=== PATIENT | female | born 1955 | race Two or more races ===

== ENCOUNTER 2017-06-05 19:56 | Emergency (ER) | payer OTHER ==
[~2017-06-05] VITALS: Ht 165.1 cm; Wt 77.1 kg
[~2017-06-05 19:56] MED LIST: ADULT ASPIRIN81 MG; HYDROCHLOROTHIA25 MG; TOPROL XL50 M1; WELLBUTRIN XL300 MG
== END 2017-06-05 23:54 | disposition home or self-care (01) ==
LOC: ER 19:56
DX: N39.0 Urinary tract infection, site not specified (principal); R31.9 Hematuria, unspecified; R82.79 Other abnormal findings on microbiological examination of urine

== ENCOUNTER 2017-12-28 11:01 | Outpatient (CLI) | payer OTHER | END 2017-12-28 11:12 | disposition home or self-care (01) | LOC: MAMO-SONO 11:01 | DX: Z12.31 Encounter for screening mammogram for malignant neoplasm of breast (principal); N60.11 Diffuse cystic mastopathy of right breast ==

== ENCOUNTER 2018-01-11 13:54 | Outpatient (CLI) | payer OTHER | END 2018-01-11 14:01 | disposition home or self-care (01) | LOC: NUCLEAR 13:54 | DX: M81.0 Age-related osteoporosis without current pathological fracture (principal) ==

== ENCOUNTER 2018-03-17 10:11 | Outpatient (CLI) | payer OTHER | END 2018-03-17 10:40 | disposition home or self-care (01) | LOC: MRI 10:11 | DX: M54.6 Pain in thoracic spine (principal); M54.89 Other dorsalgia | CPT/HCPCS: 72146 ==

== ENCOUNTER 2019-02-15 08:22 | Outpatient (CLI) | payer OTHER | END 2019-02-15 08:30 | disposition home or self-care (01) | LOC: MAMO-SONO 08:22 | DX: Z12.31 Encounter for screening mammogram for malignant neoplasm of breast (principal); Z87.898 Personal history of other specified conditions; N60.11 Diffuse cystic mastopathy of right breast ==

== ENCOUNTER 2019-05-09 08:26 | Outpatient (CLI) | payer OTHER | END 2019-05-09 08:32 | disposition home or self-care (01) | LOC: SONOGRAMA 08:26 | DX: R10.11 Right upper quadrant pain (principal); K76.0 Fatty (change of) liver, not elsewhere classified ==

== ENCOUNTER 2020-01-04 09:56 | Emergency (ER) | payer OTHER ==
[~2020-01-04] VITALS: Ht 165.1 cm; Wt 71.7 kg
[2020-01-04] MEDS ORDERED: TUSNEL LIQUID178 ML PO (12:53)
== END 2020-01-04 13:09 | disposition home or self-care (01) ==
LOC: ER 09:56
DX: J06.9 Acute upper respiratory infection, unspecified (principal); B96.0 Mycoplasma pneumoniae [M. pneumoniae] as the cause of diseases classified elsewhere; Z03.818 Encounter for observation for suspected exposure to other biological agents ruled out; R53.1 Weakness

== ENCOUNTER 2020-01-09 08:34 | Inpatient (IN) | payer OTHER ==
[~2020-01-09] VITALS: Ht 165.1 cm; Wt 71.7 kg
[~2020-01-09 08:34] MED LIST changes: +TUSNEL LIQUID178 ML PO
== END 2020-01-18 16:47 | disposition home or self-care (01) | DRG 177 ==
LOC: ER 08:34 → MEDJ 17:57
PROVIDERS: ADMIT Internal Medicine; ATTEND Internal Medicine
PROC: 3E0F7SF Introduction of Other Gas into Respiratory Tract, Via Natural or Artificial Opening (ICD-10-PCS; principal; 2020-01-09)
PROC: 4A033R1 Measurement of Arterial Saturation, Peripheral, Percutaneous Approach (ICD-10-PCS; 2020-01-09)
PROC: 8E0ZXY6 Isolation (ICD-10-PCS; 2020-01-09)
PROC: 4A12X4Z Monitoring of Cardiac Electrical Activity, External Approach (ICD-10-PCS; 2020-01-09)
PROC: CB2YYZZ Tomographic (Tomo) Nuclear Medicine Imaging of Respiratory System using Other Radionuclide (ICD-10-PCS; 2020-01-09)
PROC: 02HV33Z Insertion of Infusion Device into Superior Vena Cava, Percutaneous Approach (ICD-10-PCS; 2020-01-10)
DX: U07.1 COVID-19 (principal); J12.89 Other viral pneumonia; N39.0 Urinary tract infection, site not specified; R09.02 Hypoxemia; I10 Essential (primary) hypertension; F32.9 Major depressive disorder, single episode, unspecified; R00.1 Bradycardia, unspecified

== ENCOUNTER 2020-03-05 09:27 | Outpatient (CLI) | payer OTHER | END 2020-03-05 09:38 | disposition home or self-care (01) | LOC: MAMO-SONO 09:27 | PROVIDERS: ATTEND Surgery | DX: N60.02 Solitary cyst of left breast (principal); N60.11 Diffuse cystic mastopathy of right breast; N60.12 Diffuse cystic mastopathy of left breast ==

== ENCOUNTER 2020-05-15 09:09 | Outpatient (CLI) | payer OTHER | END 2020-05-15 09:18 | disposition home or self-care (01) | LOC: RAD 09:09 → TOM 05-21 09:15 | PROVIDERS: ATTEND Physical Medicine & Rehabilitation | DX: M62.838 Other muscle spasm (principal); M54.2 Cervicalgia ==

== ENCOUNTER 2020-05-21 09:03 | Outpatient (CLI) | payer OTHER | END 2020-05-21 09:29 | disposition home or self-care (01) | LOC: RAD 09:03 | PROVIDERS: ATTEND Surgery | DX: K57.90 Diverticulosis of intestine, part unspecified, without perforation or abscess without bleeding (principal); R10.84 Generalized abdominal pain | CPT/HCPCS: 74177; Q9965 ==

== ENCOUNTER 2020-09-03 12:29 | Outpatient (CLI) | payer OTHER | END 2020-09-03 12:34 | disposition home or self-care (01) | LOC: NUCLEAR 12:29 | PROVIDERS: ATTEND General Practice | DX: M81.0 Age-related osteoporosis without current pathological fracture (principal); M85.80 Other specified disorders of bone density and structure, unspecified site ==

== ENCOUNTER 2020-09-10 08:42 | Outpatient (CLI) | payer OTHER | END 2020-09-10 08:47 | disposition home or self-care (01) | LOC: RX STUDY 08:42 | PROVIDERS: ATTEND Internal Medicine Gastroenterology | DX: R93.3 Abnormal findings on diagnostic imaging of other parts of digestive tract (principal) ==

== ENCOUNTER 2020-11-05 09:27 | Outpatient (CLI) | payer OTHER | END 2020-11-05 09:34 | disposition home or self-care (01) | LOC: MRI 09:27 | PROVIDERS: ATTEND Physical Medicine & Rehabilitation | DX: M50.323 Other cervical disc degeneration at C6-C7 level (principal); M54.12 Radiculopathy, cervical region | CPT/HCPCS: 72141 ==

== ENCOUNTER 2021-04-08 07:56 | Outpatient (CLI) | payer OTHER | END 2021-04-08 07:58 | disposition home or self-care (01) | LOC: MAMO-SONO 07:56 | PROVIDERS: ATTEND Obstetrics & Gynecology | DX: N60.11 Diffuse cystic mastopathy of right breast (principal); N64.59 Other signs and symptoms in breast; Z12.31 Encounter for screening mammogram for malignant neoplasm of breast ==

== ENCOUNTER 2021-07-02 07:08 | Emergency (ER) | payer OTHER ==
[~2021-07-02] VITALS: Ht 165.1 cm; Wt 63.5 kg
[2021-07-02] MEDS ORDERED: COZAAR25 MG (07:30)
== END 2021-07-02 14:19 | disposition home or self-care (01) ==
LOC: ER 07:08
DX: K29.70 Gastritis, unspecified, without bleeding (principal); I10 Essential (primary) hypertension; E11.9 Type 2 diabetes mellitus without complications; Z20.822 Contact with and (suspected) exposure to COVID-19

== ENCOUNTER 2021-07-04 08:00 | Outpatient (CLI) | payer OTHER ==
[~2021-07-04 08:00] MED LIST changes: +COZAAR25 MG
== END 2021-07-04 08:30 | disposition home or self-care (01) ==
LOC: PPH VACUNA 08:00
PROVIDERS: ATTEND Emergency Medicine Pediatric Emergency Medicine
DX: Z23 Encounter for immunization (principal)

== ENCOUNTER 2021-12-10 08:29 | Outpatient (CLI) | payer OTHER | END 2021-12-10 08:33 | disposition home or self-care (01) | LOC: RAD 08:29 | PROVIDERS: ATTEND General Practice | DX: M25.511 Pain in right shoulder (principal) ==

== ENCOUNTER 2021-12-18 08:13 | Outpatient (CLI) | payer OTHER | END 2021-12-18 08:23 | disposition home or self-care (01) | LOC: PPH VACUNA 08:13 | PROVIDERS: ATTEND Emergency Medicine Pediatric Emergency Medicine | DX: Z23 Encounter for immunization (principal) ==

== ENCOUNTER 2022-06-30 07:54 | Outpatient (CLI) | payer OTHER | END 2022-06-30 08:15 | disposition home or self-care (01) | LOC: RAD 07:54 | PROVIDERS: ATTEND Anesthesiology | DX: M54.6 Pain in thoracic spine (principal); Z12.31 Encounter for screening mammogram for malignant neoplasm of breast; N60.11 Diffuse cystic mastopathy of right breast | CPT/HCPCS: 72146 ==

== ENCOUNTER 2022-07-14 09:50 | Outpatient (CLI) | payer OTHER | END 2022-07-14 09:57 | disposition home or self-care (01) | LOC: MRI 09:50 | PROVIDERS: ATTEND Anesthesiology | DX: M54.12 Radiculopathy, cervical region (principal) | CPT/HCPCS: 72141 ==

== ENCOUNTER 2023-12-14 11:34 | Outpatient (CLI) | payer OTHER | END 2023-12-14 11:38 | disposition home or self-care (01) | LOC: TOM 11:34 | DX: G31.84 Mild cognitive impairment of uncertain or unknown etiology (principal); R56.9 Unspecified convulsions; F39 Unspecified mood [affective] disorder; I11.9 Hypertensive heart disease without heart failure; J44.9 Chronic obstructive pulmonary disease, unspecified ==

== ENCOUNTER 2024-01-18 08:59 | Outpatient (CLI) | payer OTHER | END 2024-01-18 09:08 | disposition home or self-care (01) | LOC: SONOGRAMA 08:59 | PROVIDERS: ATTEND Internal Medicine | DX: E04.9 Nontoxic goiter, unspecified (principal) ==

== ENCOUNTER 2024-02-29 08:18 | Outpatient (CLI) | payer OTHER | END 2024-02-29 08:22 | disposition home or self-care (01) | LOC: SONOGRAMA 08:18 | PROVIDERS: ATTEND Internal Medicine | DX: K76.0 Fatty (change of) liver, not elsewhere classified (principal) ==

== ENCOUNTER → 2024-07-11 | Outpatient (CLI) | payer OTHER | END | disposition home or self-care (01) | LOC: MAMO-SONO 07:29 | PROVIDERS: ATTEND Internal Medicine | DX: N63.0 Unspecified lump in unspecified breast (principal); Z12.31 Encounter for screening mammogram for malignant neoplasm of breast ==